=== PATIENT | female | born 1990 | race Caucasian/White ===

== ENCOUNTER 2018-06-27 17:40 | Emergency (ER) | payer SELFPAY ==
[~2018-06-27] VITALS: Ht 170.2 cm; Wt 57.7 kg
[2018-06-27 17:50] VITALS: BP 163/116
== END 2018-06-27 21:00 | disposition home or self-care (01) ==
LOC: ER 19:14
DX: R07.9 Chest pain, unspecified (principal); I10 Essential (primary) hypertension
CPT/HCPCS: 81025; 93005; 99284